=== PATIENT | male | born 1995 | race Caucasian/White ===

== ENCOUNTER 2020-08-12 13:59 | Emergency (ER) | payer BC ==
[2020-08-12 14:06] VITALS: PULSE 73; TEMP 97.6
[2020-08-12] MEDS ORDERED: SODIUM CHLORIDE 0.9% 1,000 ML IV STA (14:20)
[2020-08-12] MEDS ORDERED: KETOROLAC 15 MG/ML 1 ML VIAL IVP STA (14:20)
[2020-08-12] MEDS ORDERED: ONDANSETRON 4 MG/2 ML VIAL IVP STA (14:20)
[2020-08-12 14:50] LABS: Basophils % (A) 0 %; Eosinophils # (A) 0.1 k/uL (0-0.7); Eosinophils % (A) 0 %; HCT 47.3 % (39.0-53.0); HGB 16.6 gm/dL (13.0-17.5); Lymphocytes # (A) 1.7 k/uL (1.0-4.8); Lymphocytes % (A) 13 %; MCH 30.1 pg (25.0-35.0); MCHC 35.1 g/dL (31.0-37.0); Mean Platelet Volume 7.3; Monocytes # (A) 0.4 k/uL (0-1.0); Monocytes % (A) 3 %; Neutrophils # (A) 11.1 k/uL (1.3-7.7); Neutrophils % (A) 83 %; Platelet Count 233 k/uL (150-450); RDW 12.3 % (11.5-15.5); WBC 13.4 k/uL (3.8-10.6)
[2020-08-12 14:56] LABS: ALT 27 U/L (4-49); AST 35 U/L (17-59); African American GFR (CKD) >90 (>60 ml/min/1.73 sqM); Albumin 5.1 g/dL (3.5-5.0); Alkaline Phosphatase 90 U/L (38-126); Anion Gap 10 mmol/L; Blood Urea Nitrogen 19 mg/dL (9-20); Calcium 10.3 mg/dL (8.4-10.2); Carbon Dioxide 25 mmol/L (22-30); Chloride 105 mmol/L (98-107); Glucose 127 mg/dL (74-99); Lipase 92 U/L (23-300); Non-African American GFR(CKD) 82 (>60 ml/min/1.73 sqM); Potassium 3.9 mmol/L (3.5-5.1); Sodium 140 mmol/L (137-145); Total Bilirubin 0.7 mg/dL (0.2-1.3); Total Protein 8.1 g/dL (6.3-8.2)
--- NOTE | 2020-08-12 15:12 | ED ---
Abdominal Pain HPI - General Chief Complaint: Abdominal Pain Stated Complaint: ABD/back pain Time Seen by Provider: 08/12/20 14:08 Source: patient Mode of arrival: ambulatory Limitations: no limitations - History of Present Illness Initial Comments: Patient is a 25-year-old male presenting to the emergency Department with complaints of right flank pain that started suddenly about 10 AM this morning. Patient states he noticed a little bit of pain and thought he needed to crack his back but then the pain quickly intensified throughout the morning. He is complaining of some mild nausea but thinks is because the pain is so severe and sharp. He currently rates the pain a 9/10. He does have history kidney stones, his last one was approximately 5 years ago. He states he is having some referred pain down the right side of his abdomen towards his groin. He denies any fever or chills. He denies any hematuria, no other abdominal pains. He denies any chest pain or short of breath. He has no further complaints at this time. Upon arrival to the ER, his vitals are stable. - Related Data Previous Rx's Medication Instructions Recorded Ketorolac [Toradol] 10 mg PO Q8HR #10 tab 08/12/20 Ondansetron Odt [Zofran Odt] 4 mg PO Q8HR PRN #10 tab 08/12/20 Tamsulosin [Flomax] 0.4 mg PO DAILY #7 cap 08/12/20 Allergies Allergy/AdvReac Type Severity Reaction Status Date / Time cefaclor [From Ceclor] Allergy Unknown Verified 08/12/20 14:49 Childhood Review of Systems ROS Statement: Those systems with pertinent positive or pertinent negative responses have been documented in the HPI. ROS Other: All systems not noted in ROS Statement are negative. Past Medical History Past Medical History: No Reported History History of Any Multi-Drug Resistant Organisms: None Reported Past Surgical History: No Surgical Hx Reported Past Psychological History: No Psychological Hx Reported Smoking Status: Never smoker Past Alcohol Use History: Occasional Past Drug Use History: None Reported General Exam - General Exam Comments Initial Comments: GENERAL: Patient is well-developed and well-nourished. Patient is nontoxic and in mild distress. HEAD: Atraumatic, normocephalic. EYES: Pupils equal round and reactive to light, extraocular movements intact, sclera anicteric, conjunctiva are normal. Eyelids were unremarkable. ENT: TMs normal, nares patent, oropharynx clear without exudates. Moist mucous membranes. NECK: Normal range of motion, supple without lymphadenopathy or JVD. LUNGS: Unlabored respirations. Breath sounds clear to auscultation bilaterally and equal. No wheezes rales or rhonchi. HEART: Regular rate and rhythm without murmurs, rubs or gallops. ABDOMEN: Soft, some mild right sided discomfort, normoactive bowel sounds. No guarding, no rebound. No masses appreciated. : Deferred MUSCULOSKELETAL: Normal extremities with adequate strength and normal range of motion, no pitting or edema. No clubbing or cyanosis. NEUROLOGICAL: Patient is alert and oriented x 3. Motor and sensory are also intact. Cranial nerves II through XII grossly intact. Symmetrical smile. Normal speech, normal gait. PSYCH: Normal mood, normal affect. SKIN: Warm, Dry, normal turgor, no rashes or lesions noted. Limitations: no limitations Course Vital Signs 08/12/20 08/12/20 14:03 16:31 Temperature 97.6 F Pulse Rate 73 73 Respiratory 20 18 Rate Blood Pressure 154/85 119/68 O2 Sat by Pulse 98 98 Oximetry Medical Decision Making - Medical Decision Making Patient is a 25-year-old male presenting with right flank pain that started suddenly this morning. He does have history of kidney stones. No fevers, his vitals are stable upon arrival. Labs show a white count of 13.4, this is most likely reactive, lactic is 2.8, no other acute findings. CT shows a 0.5 cm distal right ureteral stone with mild hydronephrosis, mild to moderate hydroureter. There is also some more calcifications in the right upper pole of the kidney. Patient was given fluids, Toradol and Zofran. He reports improvement in his symptoms, on reexamination his pain as a 10. I discussed these findings with the patient. I will send him home with Toradol, Zofran and Flomax for his symptoms. I recommended following up with urology. Patient is stable for discharge. Patient is in agreement with this plan of care. Return parameters were discussed with the patient and they verbalized understanding. Case discussed with Dr. Koenig. - Lab Data Result diagrams: 08/12/20 14:24 08/12/20 14:24 Lab Results 0308/12/20 08/12/20 Range/Units 14:24 14:24 14:24 WBC 13.4 H (3.8-10.6) k/uL RBC 5.50 (4.30-5.90) m/uL Hgb 16.6 (13.0-17.5) gm/dL Hct 47.3 (39.0-53.0) % MCV 86.0 (80.0-100.0) fL MCH 30.1 (25.0-35.0) pg MCHC 35.1 (31.0-37.0) g/dL RDW 12.3 (11.5-15.5) % Plt Count 233 (150-450) k/uL MPV 7.3 Neutrophils % 83 % Lymphocytes % 13 % Monocytes % 3 % Eosinophils % 0 % Basophils % 0 % Neutrophils # 11.1 H (1.3-7.7) k/uL Lymphocytes # 1.7 (1.0-4.8) k/uL Monocytes # 0.4 (0-1.0) k/uL Eosinophils # 0.1 (0-0.7) k/uL Basophils # 0.0 (0-0.2) k/uL Sodium 140 (137-145) mmol/L Potassium 3.9 (3.5-5.1) mmol/L Chloride 105 (98-107) mmol/L Carbon Dioxide 25 (22-30) mmol/L Anion Gap 10 mmol/L BUN 19 (9-20) mg/dL Creatinine 1.21 (0.66-1.25) mg/dL Est GFR (CKD-EPI)AfAm >90 (>60 ml/min/1.73 sqM) Est GFR (CKD-EPI)NonAf 82 (>60 ml/min/1.73 sqM) Glucose 127 H (74-99) mg/dL Lactic Ac Sepsis Rflx Plasma Lactic Acid Farhan 2.8 H* (0.7-2.0) mmol/L Calcium 10.3 H (8.4-10.2) mg/dL Total Bilirubin 0.7 (0.2-1.3) mg/dL AST 35 (17-59) U/L ALT 27 (4-49) U/L Alkaline Phosphatase 90 (38-126) U/L Total Protein 8.1 (6.3-8.2) g/dL Albumin 5.1 H (3.5-5.0) g/dL Lipase 92 (23-300) U/L 08/12/20 Range/Units 15:26 WBC (3.8-10.6) k/uL RBC (4.30-5.90) m/uL Hgb (13.0-17.5) gm/dL Hct (39.0-53.0) % MCV (80.0-100.0) fL MCH (25.0-35.0) pg MCHC (31.0-37.0) g/dL RDW (11.5-15.5) % Plt Count (150-450) k/uL MPV Neutrophils % % Lymphocytes % % Monocytes % % Eosinophils % % Basophils % % Neutrophils # (1.3-7.7) k/uL Lymphocytes # (1.0-4.8) k/uL Monocytes # (0-1.0) k/uL Eosinophils # (0-0.7) k/uL Basophils # (0-0.2) k/uL Sodium (137-145) mmol/L Potassium (3.5-5.1) mmol/L Chloride (98-107) mmol/L Carbon Dioxide (22-30) mmol/L Anion Gap mmol/L BUN (9-20) mg/dL Creatinine (0.66-1.25) mg/dL Est GFR (CKD-EPI)AfAm (>60 ml/min/1.73 sqM) Est GFR (CKD-EPI)NonAf (>60 ml/min/1.73 sqM) Glucose (74-99) mg/dL Lactic Ac Sepsis Rflx Y Plasma Lactic Acid Farhan (0.7-2.0) mmol/L Calcium (8.4-10.2) mg/dL Total Bilirubin (0.2-1.3) mg/dL AST (17-59) U/L ALT (4-49) U/L Alkaline Phosphatase (38-126) U/L Total Protein (6.3-8.2) g/dL Albumin (3.5-5.0) g/dL Lipase (23-300) U/L Disposition Clinical Impression: Right distal ureteral calculus Disposition: HOME SELF-CARE Condition: Stable Instructions (If sedation given, give patient instructions): Kidney Stones (ED) Additional Instructions: Please return to the Emergency Department if symptoms worsen or any other concerns. May take medications for pain and nausea relief. Drink plenty of water and fluids. Follow-up with your regular doctor. Prescriptions: Tamsulosin [Flomax] 0.4 mg PO DAILY #7 cap Ketorolac [Toradol] 10 mg PO Q8HR #10 tab Ondansetron Odt [Zofran Odt] 4 mg PO Q8HR PRN #10 tab PRN Reason: Nausea Is patient prescribed a controlled substance at d/c from ED?: No Referrals: None,Stated [Primary Care Provider] - 1-2 days Fernando Mcadams MD [STAFF PHYSICIAN] - 1-2 days
--- NOTE | 2020-08-12 15:15 | CT ---
EXAMINATION TYPE: CT abdomen pelvis wo con DATE OF EXAM: 08/12/2020 COMPARISON: None INDICATION: Right flank pain. History of stones. DLP: 819.4 mGycm, Automated exposure control for dose reduction was used. CONTRAST: 0 mL of Isovue 300. Study performed without Oral Contrast TECHNIQUE: Axial images were obtained from above the diaphragm to the pubic rami in the axial plane a t 5 mm thick sections. Reconstructed images are reviewed on the computer in the coronal plane. FINDINGS: Limited CT sections are obtained the lung bases. The lung bases are clear. CT ABDOMEN: Liver: Normal Spleen: Normal Pancreas: Normal Adrenal glands: The adrenal glands are normal. Gallbladder: Normal Kidneys: Multiple clustered kidney stones are within the upper right kidney. No hydronephrosis is elena dent. No obstruction is evident. Right ureter is somewhat prominent to the ureterovesical junction. T here is a 0.5 cm calcification which may be at the distal ureterovesical junction or within the urina ry bladder. Correlate with symptoms. No cysts are present. Aorta: Normal Inferior vena cava: Normal. CT PELVIS: Loops of bowel within the abdomen and pelvis are normal. Studies performed lateral contrast limit ing bowel evaluation. Appendix: Normal as visualized. Urinary bladder: The suspected distal right ureterovesical junction stone is identified in the gamboa l plane. Urinary bladder is otherwise unremarkable. Genitourinary structures: Prostate is normal Osseous structures: No suspicious lytic or sclerotic lesions IMPRESSIONS: 1. 0.5 cm distal right ureteral vesicle junction stone with mild hydronephrosis and mild to moderate hydroureter. 2. Clustered calcifications cortical medullary junction right upper pole kidney.
[2020-08-12 16:32] VITALS: BP 119/68; RESP 18
== END 2020-08-12 16:32 | disposition home or self-care (01) ==
LOC: EC 13:59
DX: N13.2 Hydronephrosis with renal and ureteral calculous obstruction (principal); Z88.1 Allergy status to other antibiotic agents
CPT/HCPCS: 74176; 80053; 83605; 83690; 85025; 96365; 96375; 99284

== ENCOUNTER → 2020-10-23 | Outpatient (CLI) | payer BC | END | disposition home or self-care (01) | LOC: LABWHC1 07:25 | PROVIDERS: ATTEND Urology | DX: N20.0 Calculus of kidney (principal) | CPT/HCPCS: 36415; 82310; 83970 ==

== ENCOUNTER 2021-01-09 21:37 | Emergency (ER) | payer BC, OTHER ==
[2021-01-09 21:58] VITALS: BP 139/88; PULSE 76; RESP 16; TEMP 98.3
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
[2021-01-09] MEDS ORDERED: IBUPROFEN 600 MG TAB PO STA (22:44)
--- NOTE | 2021-01-10 00:37 | XR ---
EXAMINATION TYPE: XR hand complete RT DATE OF EXAM: 01/09/2021 COMPARISON: NONE HISTORY: Hand and swelling TECHNIQUE: 3 view FINDINGS: There is nondisplaced oblique fracture of the midshaft of the fourth metacarpal. There is n o dislocation. There is some mild soft tissue swelling. Fingers appear intact. Carpal bones are intac t. IMPRESSION: Acute fourth metacarpal fracture.
== END 2021-01-09 23:08 | disposition home or self-care (01) ==
LOC: EC 21:37
DX: S62.304A Unspecified fracture of fourth metacarpal bone, right hand, initial encounter for closed fracture (principal); F17.200 Nicotine dependence, unspecified, uncomplicated; Z88.1 Allergy status to other antibiotic agents; X50.0XXA Overexertion from strenuous movement or load, initial encounter
CPT/HCPCS: 29125; 99283

== ENCOUNTER 2022-03-09 18:53 | Emergency (ER) | payer BC ==
[2022-03-09 19:43] VITALS: BP 127/73; PULSE 82; RESP 18; TEMP 98.1
[2022-03-09] MEDS ORDERED: KETOROLAC 15 MG/ML 1 ML VIAL IM STA (20:22)
[2022-03-09] MEDS ORDERED: LIDOCAINE 1% INJ 10MG/ML (20 ML MDV) SQ ONE (20:24)
--- NOTE | 2022-03-09 20:44 | XR ---
EXAMINATION TYPE: XR finger LT DATE OF EXAM: 03/09/2022 8:25 PM INDICATION: Patient age:Male; 27 years old; Reason for study: THUMB LACERATION; . COMPARISON: None TECHNIQUE: Frontal, lateral and oblique views of the left thumb were obtained. FINDINGS: Left thumb laceration. No evidence of radiopaque foreign body. Normal alignment of the visu alized joints. No acute osseous pathology is identified. No evidence of soft tissue swelling. IMPRESSION: Left thumb laceration without evidence of fracture or radiopaque foreign body.
[2022-03-09] MEDS ORDERED: GELATIN SPONGE,ABSORB (SMALL) 1 EACH SPONGE TOPICAL STA (21:18)
--- NOTE | 2022-03-09 21:46 | ED ---
Wound/Laceration HPI - General Chief Complaint: Wound/Laceration Stated Complaint: Thumb & finger lac Time Seen by Provider: 03/09/22 19:57 Source: patient Mode of arrival: ambulatory Limitations: no limitations - History of Present Illness Initial Comments: Patient is a 27-year-old male presenting with chief complaint of laceration to the left thumb. Patient was using a saw while doing mark work, the board got caught in his fist him and index finger were injured. There is a small wound to be index finger, there is an avulsion injury to the left thumb. No numbness or tingling. Patient has full range of motion. Patient received a tetanus shot earlier this year. - Related Data Previous Rx's Medication Instructions Recorded Ketorolac [Toradol] 10 mg PO Q8HR #10 tab 08/12/20 Ondansetron Odt [Zofran Odt] 4 mg PO Q8HR PRN #10 tab 08/12/20 Tamsulosin [Flomax] 0.4 mg PO DAILY #7 cap 08/12/20 Allergies Allergy/AdvReac Type Severity Reaction Status Date / Time cefaclor [From Ceclor] Allergy Unknown Verified 03/09/22 19:43 Childhood Review of Systems ROS Statement: Those systems with pertinent positive or pertinent negative responses have been documented in the HPI. ROS Other: All systems not noted in ROS Statement are negative. Past Medical History Past Medical History: No Reported History Additional Past Medical History / Comment(s): kidney stones History of Any Multi-Drug Resistant Organisms: None Reported Past Surgical History: No Surgical Hx Reported Past Psychological History: No Psychological Hx Reported Smoking Status: Light tobacco smoker Past Alcohol Use History: Occasional Past Drug Use History: None Reported General Exam Limitations: no limitations General appearance: alert, in no apparent distress Head exam: Present: atraumatic, normocephalic, normal inspection Eye exam: Present: normal appearance, PERRL, EOMI. Absent: scleral icterus, conjunctival injection, periorbital swelling Neck exam: Present: normal inspection Left Hand Wrist exam: Present: full ROM Neurological exam: Present: alert, oriented X3, CN II-XII intact Psychiatric exam: Present: normal affect, normal mood Expanded Type of lesion: Present: laceration (3 cm laceration to the left thumb) Course Vital Signs 03/09/22 19:41 Temperature 98.1 F Pulse Rate 82 Respiratory 18 Rate Blood Pressure 127/73 O2 Sat by Pulse 99 Oximetry Procedures - Laceration Laceration #1 Consent Obtained: verbal consent Indication: laceration Site: hand Size (cm): 3 Description: avulsion Depth: simple, single layer Anesthetic Used: lidocaine 1%, without epi Pre-repair: wound explored, irrigated extensively, deep structures intact Type of Sutures: nylon Size of Sutures: 4-0, other (gelfoam used over avulsion injury) Number of Sutures: 2 Technique: simple, interrupted Patient Tolerated Procedure: well, no complications Medical Decision Making - Medical Decision Making Patient is a 27-year-old male presenting with laceration to the left thumb. Patient injured the thumb on a saw. Last shot was earlier this year. There is a mostly avulsion laceration approximately 3 cm in length, there is a small portion that is a laceration that can be approximated. 2 simple interrupted sutures with 4-0 nylon were used, and Gelfoam was used for the remainder of the injury. Educated on wound care. Follow-up with PCP. Report back to ER with any new or worsening symptoms. Discussed return parameters and answered all questions. Patient conveyed verbal understanding and agreed to the plan. I discussed this case in detail with my attending Dr. Foote Disposition Clinical Impression: Laceration Disposition: HOME SELF-CARE Condition: Good Instructions (If sedation given, give patient instructions): Care For Your Stitches (ED), Laceration (ED), Finger Laceration (ED), Laceration Without Closure (ED) Additional Instructions: Follow-up with PCP. Report back to ER with any new or worsening symptoms. Take Motrin and Tylenol as needed for pain control. Sutures may be removed in 10-14 days, this can be done here in the ER, by her PCP, or at a local urgent care. Gelfoam will fall off in a few days, he can soak it off if needed. Wash wound with soap and water and keep clean, dry, covered. Avoid submersion, such as baths or swimming. Monitor for signs of infection, including but not limited to redness, swelling, tenderness, discharge, warmth, fever, chills. Is patient prescribed a controlled substance at d/c from ED?: No Referrals: None,Stated [Primary Care Provider] - 1-2 days Time of Disposition: 21:46
== END 2022-03-09 21:51 | disposition home or self-care (01) ==
LOC: EC 18:53
DX: S61.211A Laceration without foreign body of left index finger without damage to nail, initial encounter (principal); F17.200 Nicotine dependence, unspecified, uncomplicated; Z88.1 Allergy status to other antibiotic agents; W31.2XXA Contact with powered woodworking and forming machines, initial encounter; Y93.E5 Activity, floor mopping and cleaning
CPT/HCPCS: 99283 ×2; 96372 ×2; 12002 ×2; 73140; J2001; J1885

== ENCOUNTER 2022-03-18 19:24 | Emergency (ER) | payer BC ==
[2022-03-18 19:29] VITALS: BP 144/72; PULSE 71; RESP 18; TEMP 98.4
--- NOTE | 2022-03-18 19:44 | ED ---
General Adult HPI - General Chief complaint: Recheck/Abnormal Lab/Rx Stated complaint: Finger infection Source: patient, family Mode of arrival: ambulatory - History of Present Illness Initial comments: Patient is a 27-year-old male presenting for suture removal and concern for infection. Patient presented for laceration on 03/09, patient had avulsion injury to finger from a table saw. 2 sutures were placed and Gelfoam was applied, patient followed wound care at home. Patient states that there appears to be some discoloration around the open wound. There is also some swelling present. He admits to mild pain. He denies any discharge, redness spreading up the hand, fever, chills, numbness, tingling, weakness. - Related Data Previous Rx's Medication Instructions Recorded Ketorolac [Toradol] 10 mg PO Q8HR #10 tab 08/12/20 Ondansetron Odt [Zofran Odt] 4 mg PO Q8HR PRN #10 tab 08/12/20 Tamsulosin [Flomax] 0.4 mg PO DAILY #7 cap 08/12/20 Cephalexin [Keflex] 500 mg PO Q6HR 7 Days #28 cap 03/18/22 Sulfamethox-Tmp 800-160Mg [Bactrim 1 tab PO Q12HR 7 Days #14 tab 03/18/22 DS 800-160 mg] Allergies Allergy/AdvReac Type Severity Reaction Status Date / Time cefaclor [From Ceclor] Allergy Unknown Verified 03/18/22 19:29 Childhood Review of Systems ROS Statement: Those systems with pertinent positive or pertinent negative responses have been documented in the HPI. ROS Other: All systems not noted in ROS Statement are negative. Past Medical History Past Medical History: No Reported History Additional Past Medical History / Comment(s): kidney stones History of Any Multi-Drug Resistant Organisms: None Reported Past Surgical History: No Surgical Hx Reported Past Psychological History: No Psychological Hx Reported Smoking Status: Light tobacco smoker Past Alcohol Use History: Occasional Past Drug Use History: None Reported General Exam Limitations: no limitations General appearance: alert, in no apparent distress Head exam: Present: atraumatic, normocephalic, normal inspection Eye exam: Present: normal appearance, PERRL, EOMI. Absent: scleral icterus, conjunctival injection, periorbital swelling Neck exam: Present: normal inspection Neurological exam: Present: alert, oriented X3, CN II-XII intact Psychiatric exam: Present: normal affect, normal mood Skin exam: Present: warm, dry, normal color. Absent: rash Expanded Type of lesion: Present: laceration (There is a wound present that was not able to be repaired on 03/09, there appears to be good granulation tissue, some necrosis is present.) Course Vital Signs 03/18/22 19:25 Temperature 98.4 F Pulse Rate 71 Respiratory 18 Rate Blood Pressure 144/72 O2 Sat by Pulse 98 Oximetry Medical Decision Making - Medical Decision Making Patient is a 27-year-old male presenting for suture removal and concern for finger infection. Patient sustained laceration on 03/09, 2 sutures were placed and the remainder of the wound was covered with Gelfoam as it could not be repaired. Today patient states the area has been continuously moist, no discharge, there is some redness and swelling. On examination there is some necrosis around the wound, this will slough off with time. Patient's wound is soaked in warm water and Betadine. Small pieces of remaining Gelfoam were removed. Patient is placed on Keflex and Bactrim. Educated on wound care. 2 Sutures were removed today. Follow-up with PCP. Report back to ER with any new or worsening symptoms. Discussed return parameters and answered all questions. Patient conveyed verbal understanding and agreed to the plan. I discussed this case in detail with my attending Dr. Andujar Disposition Clinical Impression: Cellulitis Disposition: HOME SELF-CARE Condition: Good Instructions (If sedation given, give patient instructions): Cellulitis (ED) Additional Instructions: Follow-up with PCP. Report back to ER with any new or worsening symptoms. Signs of worsening infection including fever, chills, redness spreading up the thumb. Take medication as prescribed. Prescriptions: Sulfamethox-Tmp 800-160Mg [Bactrim DS 800-160 mg] 1 tab PO Q12HR 7 Days #14 tab Cephalexin [Keflex] 500 mg PO Q6HR 7 Days #28 cap Is patient prescribed a controlled substance at d/c from ED?: No Referrals: None,Stated [Primary Care Provider] - 1-2 days Time of Disposition: 19:44
== END 2022-03-18 19:49 | disposition home or self-care (01) ==
LOC: EC 19:24
DX: L03.90 Cellulitis, unspecified (principal)
CPT/HCPCS: 99283

== ENCOUNTER → 2023-06-28 | Outpatient (CLI) | payer BC ==
--- NOTE | 2023-06-28 08:46 | XR ---
EXAMINATION TYPE: XR KUB DATE OF EXAM: 06/28/2023 8:02 AM CLINICAL INDICATION:Male, 28 years old with history of N20.1 CALCULUS OF URETER; [facility] COMPARISON: 02/06/2012. TECHNIQUE: One radiographic view of the abdomen was obtained. FINDINGS: Mild to moderate amount stool in the colon. The bowel gas pattern is nonspecific without di lated loops of small or large bowel. There is no evidence for organomegaly or pneumoperitoneum. The osseous structures are intact. Multiple calcifications project over the right kidney not significant ly changed from 08/12/2020 CT given differences in technique. Fecal material and gas are demonstrated throughout the colon and rectum. IMPRESSION: Nonspecific bowel gas pattern without radiographic evidence for acute process. Right renal calculi not significantly changed from prior CT. Findings could be within a renal cyst. C onsider surveillance at a minimum given heterogenous complexity centered around what is thought to be an underlying lesion. A baseline MRI renal mass protocol may be of benefit.
[2023-06-28 11:09] LABS: BUN/Creat Ratio 15.55 Ratio (12.00-20.00); Blood Urea Nitrogen 17.1 mg/dL (9.0-27.0); Carbon Dioxide 28.2 mmol/L (21.6-31.8); Chloride 101 mmol/L (96-109); Glucose 86 mg/dL (70-110); Potassium 3.9 mmol/L (3.5-5.5); Sodium 140 mmol/L (135-145); Uric Acid 6.6 mg/dL (3.7-8.7)
== END | disposition home or self-care (01) ==
LOC: LABWHC1 07:20
PROVIDERS: ATTEND Urology
DX: N20.1 Calculus of ureter (principal)
CPT/HCPCS: 36415; 74018; 80048; 83970; 84550

== ENCOUNTER → 2023-06-28 | Outpatient (CLI) | payer BC | END | disposition home or self-care (01) | LOC: RADXRMAIN 07:50 | PROVIDERS: ATTEND Urology | DX: N20.1 Calculus of ureter (principal) ==

== ENCOUNTER 2024-04-10 21:00 | Emergency (ER) | payer BC ==
[2024-04-10 21:04] VITALS: RESP 16; TEMP 98.2
--- NOTE | 2024-04-10 21:20 | XR ---
EXAMINATION TYPE: XR hand complete RT DATE OF EXAM: 04/10/2024 9:15 PM COMPARISON: Previous radiograph dated 03/09/2022. CLINICAL INDICATION: Male, 29 years old with history of punched a wall; [facility] TECHNIQUE: XR hand complete RT Frontal, lateral and oblique views were obtained. FINDINGS: Comminuted mildly displaced fracture of the fifth digit metacarpal head with dorsal apex angulation o f the fracture fragments. There is significant adjacent soft tissue swelling. Carpal alignment appear s maintained. No definite additional acute fractures or dislocations identified. IMPRESSION: Comminuted mildly displaced fracture of the fifth digit metacarpal head as above. [facility], , 04/10/2024 9:18 PM
--- NOTE | 2024-04-10 21:45 | ED ---
Upper Extremity HPI - General Chief Complaint: Extremity Injury, Upper Stated Complaint: R Hand Injury Time Seen by Provider: 04/10/24 21:42 Source: patient, RN notes reviewed Mode of arrival: ambulatory Limitations: no limitations - History of Present Illness Initial Comments: 29-year-old male presenting to the ER with a chief complaint of right hand i njury. Patient states he was at [employer] this evening and states he was "bowling bad". Patient got angry and went into the bathroom and punched a stall. He since has been having pain over his fifth and fourth metacarpal. He denies any paresthesias. No other injuries. Patient has not taken anything for pain at this time. No other complaints. Patient reports he did consume beer and shots of liquor this evening but states his significant other can take him home. - Related Data Previous Rx's Medication Instructions Recorded Ketorolac [Toradol] 10 mg PO Q8HR #10 tab 08/12/20 Ondansetron Odt [Zofran Odt] 4 mg PO Q8HR PRN #10 tab 08/12/20 Tamsulosin [Flomax] 0.4 mg PO DAILY #7 cap 08/12/20 Cephalexin [Keflex] 500 mg PO Q6HR 7 Days #28 cap 03/18/22 Sulfamethox-Tmp 800-160Mg [Bactrim 1 tab PO Q12HR 7 Days #14 tab 03/18/22 DS 800-160 mg] Allergies Allergy/AdvReac Type Severity Reaction Status Date / Time cefaclor [From Ceclor] Allergy Unknown Verified 04/10/24 21:04 Childhood Review of Systems ROS Statement: Those systems with pertinent positive or pertinent negative responses have been documented in the HPI. ROS Other: All systems not noted in ROS Statement are negative. Past Medical History Past Medical History: No Reported History Additional Past Medical History / Comment(s): kidney stones History of Any Multi-Drug Resistant Organisms: None Reported Past Surgical History: No Surgical Hx Reported Past Psychological History: No Psychological Hx Reported Smoking Status: Light tobacco smoker Past Alcohol Use History: Occasional Past Drug Use History: None Reported General Exam Limitations: no limitations General appearance: alert, in no apparent distress Respiratory exam: Present: normal lung sounds bilaterally. Absent: respiratory distress, wheezes, rales, rhonchi, stridor Cardiovascular Exam: Present: regular rate, normal rhythm, normal heart sounds. Absent: systolic murmur, diastolic murmur, rubs, gallop, clicks Extremities exam: Present: tenderness (Edema with minimal bruising over fifth distal metacarpal. Small abrasion to the fourth MCP joint. Full range of motion of all digits. 2+ right radial pulse. No anatomical snuffbox tenderness.), normal capillary refill Neurological exam: Present: alert, oriented X3, CN II-XII intact Skin exam: Present: warm, dry, intact, normal color. Absent: rash Course Vital Signs 04/10/24 04/10/24 21:02 22:05 Temperature 98.2 F Pulse Rate 75 76 Respiratory 16 16 Rate Blood Pressure 118/70 111/70 O2 Sat by Pulse 96 97 Oximetry Procedures - Orthopedic Splinting/Casting Injury #1 Side: right Upper Extremity Injury Location: hand Upper Extremity Immobilizer: ulnar gutter Medical Decision Making - Medical Decision Making Was pt. sent in by a medical professional or institution (, PA, POST ANESTHESIA NURSE, urgent care, hospital, or alf...) When possible be specific @ -No Did you speak to anyone other than the patient for history (EMS, parent, family, police, friend...)? What history was obtained from this source @ -Significant other, at bedside, aiding in HPI and past medical history. Did you review nursing and triage notes (agree or disagree)? Why? @ -I reviewed and agree with nursing and triage notes Were old charts reviewed (outside hosp., previous admission, EMS record, old EKG, old radiological studies, urgent care reports/EKG's, alf records)? Report findings @ -No old charts were reviewed Differential Diagnosis (chest pain, altered mental status, abdominal pain women, abdominal pain men, vaginal bleeding, weakness, fever, dyspnea, syncope, headache, dizziness, GI bleed, back pain, seizure, CVA, palpatations, mental health, musculoskeletal)? @ -Differential Musculoskeletal: Muscular strain, contusion, ligament sprain, fracture, arthritis, septic arthritis, bursitis, cellulitis, muscle spasm, nerve compression, DVT, arterial occlusion, herpes zoster, electrolyte abnormality, tumor.... This is not meant to be in all inclusive list EKG interpreted by me (3pts min.). @ -None done X-rays interpreted by me (1pt min.). @ -Right hand x-ray interpreted by me significant for a comminuted fracture of the fifth distal metacarpal. CT interpreted by me (1pt min.). @ -None done U/S interpreted by me (1pt. min.). @ -None done What testing was considered but not performed or refused? (CT, X-rays, U/S, labs)? Why? @ -None What meds were considered but not given or refused? Why? @ -None Did you discuss the management of the patient with other professionals (professionals i.e. , PA, POST ANESTHESIA NURSE, lab, RT, psych nurse, social work assistant, billet recorder, teacher, corporate banking officer, case investigator)? Give summary @ -No Was smoking cessation discussed for >3mins.? @ -No Was critical care preformed (if so, how long)? @ -No Were there social determinants of health that impacted care today? How? (Homelessness, low income, unemployed, alcoholism, drug addiction, transportation, low edu. Level, literacy, decrease access to med. care, penitentiary, rehab)? @ -No Was there de-escalation of care discussed even if they declined (Discuss DNR or withdrawal of care, Hospice)? DNR status @ -No What co-morbidities impacted this encounter? (DM, HTN, Smoking, COPD, CAD, Cancer, CVA, ARF, Chemo, Hep., AIDS, mental health diagnosis, sleep apnea, morbid obesity)? @ -None Was patient admitted / discharged? Hospital course, mention meds given and route, prescriptions, significant lab abnormalities, going to OR and other pertinent info. @ -Discharge. 29-year-old male presented the ER with a chief complaint of right hand injury. History and physical exam completed. Vital stable. Patient in no signs of acute distress nontoxic-appearing. Right upper extremity neurovascular intact. There is edema and tenderness to fifth metacarpal. Abrasion over fourth metacarpal head. Patient has full range of motion of digits and wrist. No anatomical snuffbox tenderness. X-rays obtained showing comminuted mildly displaced fracture of the fifth metacarpal head. Patient placed in an ulnar gutter splint, see note above. I advised close follow-up with orthopedics, referral given. Patient refused analgesic medications. Tetanus is up-to-date. Strict return parameters discussed. Patient discharged in stable condition with follow-up to PCP. Patient verbally expressed understanding and agreement with care plan. Case discussed with ED attending, Dr. Matias. Undiagnosed new problem with uncertain prognosis? @ -No Drug Therapy requiring intensive monitoring for toxicity (Heparin, Nitro, Insulin, Cardizem)? @ -No Were any procedures done? @ -Yes Diagnosis/symptom? @ -Fifth metacarpal fracture Acute, or Chronic, or Acute on Chronic? @ -Acute Uncomplicated (without systemic symptoms) or Complicated (systemic symptoms)? @ -Uncomplicated Side effects of treatment? @ -No Exacerbation, Progression, or Severe Exacerbation? @ -No Poses a threat to life or bodily function? How? (Chest pain, [place], [place], pneumonia, PE, COPD, DKA, ARF, appy, cholecystitis, CVA, Diverticulitis, Homicidal, Suicidal, threat to staff... and all critical care pts) @ -No - Radiology Data Radiology results: report reviewed, image reviewed Disposition Clinical Impression: Fracture of fifth metacarpal bone Disposition: HOME SELF-CARE Condition: Stable Instructions (If sedation given, give patient instructions): Hand Fracture (ED) Additional Instructions: Follow-up with orthopedics. Return to the ER for any new or worsening concerns. Is patient prescribed a controlled substance at d/c from ED?: No Referrals: None,Stated [Primary Care Provider] - 1-2 days David Domíngeuz DO [Doctor of Osteopathic Medicine] - 1-2 days Time of Disposition: 21:45
[2024-04-10 22:07] VITALS: BP 111/70; PULSE 76
== END 2024-04-10 22:05 | disposition home or self-care (01) ==
LOC: EC 21:00
DX: S62.306A Unspecified fracture of fifth metacarpal bone, right hand, initial encounter for closed fracture (principal); F17.200 Nicotine dependence, unspecified, uncomplicated; Z88.1 Allergy status to other antibiotic agents; W22.09XA Striking against other stationary object, initial encounter; Y93.54 Activity, bowling
CPT/HCPCS: 29125; 99283